=== PATIENT | female | born 1965 | race Caucasian/White ===

== ENCOUNTER 2020-12-19 15:12 | Emergency (ER) | payer OTHER ==
[2020-12-19 16:08] LABS: RED BLOOD COUNT 4.8 M/UL (4.00-5.10)
[2020-12-19 16:35] LABS: BUN/CREATININE RATIO 27 (0-10)
[2020-12-19] MEDS ORDERED: ZOFRAN ODT 4 MG4 MG PO (21:44)
== END 2020-12-19 21:50 | disposition home or self-care (01) ==
LOC: ER1 15:12
PROVIDERS: Emergency Medicine
DX: N17.9 Acute kidney failure, unspecified (principal); I95.1 Orthostatic hypotension; E86.0 Dehydration; J44.9 Chronic obstructive pulmonary disease, unspecified; F17.210 Nicotine dependence, cigarettes, uncomplicated; I11.0 Hypertensive heart disease with heart failure; I50.9 Heart failure, unspecified; Z71.6 Tobacco abuse counseling; Z90.710 Acquired absence of both cervix and uterus
CPT/HCPCS: 71045; 80053; 81001; 82550; 82553; 83605; 83690; 83735; 83874; 83880; 84439; 84443; 84484; 85025; 93005; 96374; 99284; J2405

== ENCOUNTER → 2021-02-05 | Outpatient (CLI) | payer OTHER ==
[~2021-02-05] MED LIST: ZOFRAN ODT 4 MG4 MG PO
== END ==
LOC: KOH-I 09:19
DX: R05 Cough (principal); R91.8 Other nonspecific abnormal finding of lung field
CPT/HCPCS: 71046

== ENCOUNTER 2021-05-23 19:32 | Emergency (ER) | payer OTHER | END 2021-05-23 21:05 | disposition left against medical advice (07) | LOC: ER1 19:32 | DX: Z53.21 Procedure and treatment not carried out due to patient leaving prior to being seen by health care provider (principal) ==

== ENCOUNTER → 2022-01-06 | Outpatient (CLI) | payer OTHER | LOC: KOH-I 10:23 | DX: R05.9 Cough, unspecified (principal); M54.2 Cervicalgia; M54.9 Dorsalgia, unspecified; M47.812 Spondylosis without myelopathy or radiculopathy, cervical region; M54.50 Low back pain, unspecified; M47.816 Spondylosis without myelopathy or radiculopathy, lumbar region | CPT/HCPCS: 71046; 72040; 72070; 72100 ==

== ENCOUNTER 2022-04-21 16:39 | Emergency (ER) | payer OTHER ==
[2022-04-21 17:38] LABS: HEMOGLOBIN 14.9 gm/dl (12.3-15.3); RED BLOOD COUNT 4.8 M/UL (4.00-5.10); WHITE BLOOD COUNT 8.2 K/UL (4.5-11.0)
[2022-04-21 18:09] LABS: BUN/CREATININE RATIO 16 (0-10)
== END 2022-04-21 18:55 | disposition home or self-care (01) ==
LOC: ER1 16:39
PROVIDERS: Student in an Organized Health Care Education/Training Program
DX: E86.0 Dehydration (principal); R55 Syncope and collapse; I10 Essential (primary) hypertension; J44.9 Chronic obstructive pulmonary disease, unspecified; Z20.822 Contact with and (suspected) exposure to COVID-19
CPT/HCPCS: 0240U; 71045; 80053; 82550; 82553; 82962; 84484; 85025; 93005; 99285